=== PATIENT | female | born 1940 | race Caucasian/White ===

== ENCOUNTER → 2020-06-21 | Outpatient (CLI) | payer MEDICARE, OTHER ==
[~2020-06-21] MED LIST: ASPI325 PO; ASPI81CH PO; ATEN25; ATENOLOL; ATOR20; Adult Low Dose81 MG PO; Avapro300 MG PO; CELE100 PO; CETI5; CONEST.3; CONEST.625 PO; DULO60 PO; FLUT.05NI; FLUT44OIA IH; HYDCHL12.5 PO; HYDCHL25 PO; IRBE75 PO; LEVSOD100 PO; LISI5; METO100ER PO; METO50ER PO; NAPR500 PO; OMEP40CA12 PO; OXYACE5T PO; OXYC1TAB11; Omeprazole20 M1 PO; SERT50 PO; SIMV10 PO; SUMA5NI PO; TOPI25 PO
== END | disposition home or self-care (01) ==
LOC: PLD 11:42 → LAB SHORT 11:42
DX: D22.71 Melanocytic nevi of right lower limb, including hip (principal)
CPT/HCPCS: 88305

== ENCOUNTER 2020-09-22 20:07 | Emergency (ER) | payer MEDICARE, OTHER ==
[~2020-09-22] VITALS: Ht 167.6 cm; Wt 77.1 kg
[~2020-09-22 20:07] MED LIST changes: -ATOR20
[2020-09-22] MEDS ORDERED: ATOR20 (20:49)
[2020-09-22 21:21] LABS: BASOPHILS ABSOLUTE AUTO 0.04 K/mm3 (0.00-0.23); BASOPHILS PERCENT AUTO 1 % (0-2); EOSINOPHILS ABSOLUTE AUTO 0.18 K/mm3 (0.00-0.68); EOSINOPHILS PERCENT AUTO 2 % (0-6); Hematocrit 42.1 % (33.0-51.0); Hemoglobin 13.7 g/dL (11.5-16.0); IMMATURE GRAN ABSOLUTE AUTO 0.02 K/mm3 (0.00-0.10); IMMATURE GRAN PERCENT AUTO 0 % (0-1); LYMPHOCYTES ABSOLUTE AUTO 3.99 K/mm3 (0.84-5.20); LYMPHOCYTES PERCENT AUTO 47 % (21-46); MONOCYTES ABSOLUTE AUTO 0.68 K/mm3 (0.16-1.47); MONOCYTES PERCENT AUTO 8 % (4-13); Mean Corpuscular HGB 30.7 pg (26.0-34.0); Mean Corpuscular HGB Conc 32.5 g/dL (31.5-36.5); Mean Corpuscular Volume 94 fL (80-100); Mean Platelet Volume 9.8 fL (9.1-12.4); NEUTROPHILS ABSOLUTE AUTO 3.64 K/mm3 (1.96-9.15); NEUTROPHILS PERCENT AUTO 43 % (41-73); Platelet Count 275 K/mm3 (150-400); RDW Coefficient Variation 13.6 % (11.7-14.2); RDW Standard Deviation 47.3 fL (35.1-46.3); Red Blood Cell Count 4.46 M/mm3 (3.80-5.20); White Blood Cell Count 8.55 K/mm3 (4.00-11.30)
[2020-09-22 21:44] LABS: Alanine Aminotransfer (ALT/SGP 18 U/L (12-78); Albumin, Blood 3.7 g/dL (3.4-5.0); Alk Phos 109 U/L (50-136); Anion Gap 6 mmol/L (6-16); Aspartate Aminotrans (AST/SGOT 18 U/L (12-37); Bilirubin, Total 0.3 mg/dL (0.1-1.0); Blood Urea Nitrogen 19 mg/dL (8-24); Bun/Creatinine Ratio 25.3 (12.0-20.0); CO2, Blood 29 mmol/L (21-32); Calcium, Blood 10.1 mg/dL (8.5-10.1); Chloride, Blood 106 mmol/L (98-108); Creatinine, Blood 0.75 mg/dL (0.40-1.00); Globulin, Blood 3.6 g/dL (2.2-4.0); Glomerular Filtration Rate >60 (60-); Glucose, Blood 88 mg/dL (70-99); Potassium, Blood 3.8 mmol/L (3.5-5.5); Sodium, Blood 141 mmol/L (136-145); Total Protein, Blood 7.3 g/dL (6.4-8.2); Troponin I <0.015 ng/mL (0.000-0.040)
== END 2020-09-22 23:11 | disposition home or self-care (01) ==
LOC: ER 20:07
PROVIDERS: Physician Assistant
DX: R07.9 Chest pain, unspecified (principal); I10 Essential (primary) hypertension; E78.5 Hyperlipidemia, unspecified; E03.9 Hypothyroidism, unspecified; I25.10 Atherosclerotic heart disease of native coronary artery without angina pectoris; Z88.8 Allergy status to other drugs, medicaments and biological substances; Z79.82 Long term (current) use of aspirin; Z79.899 Other long term (current) drug therapy
CPT/HCPCS: 36415; 71046; 80053; 83690; 84484; 85025; 93005; 93010; 99285-25

== ENCOUNTER 2021-07-26 21:47 | Emergency (ER) | payer MEDICARE, OTHER ==
[~2021-07-26] VITALS: Ht 167.6 cm; Wt 74.8 kg
[~2021-07-26 21:47] MED LIST changes: +ATOR20
[2021-07-26 22:13] LABS: Source, Urine Catheter
[2021-07-26 22:19] LABS: Appearance, Urine Hazy (Clear); Bilirubin, Urine Neg (Neg); Blood, Urine 5+ (Neg); Color, Urine Yellow (P-Yellow); Glucose Qualitative, Urine Neg (Neg); Ketones, Urine Neg (Neg); Leukocyte Esterase, Urine Neg (Neg); Nitrite, Urine Neg (Neg); Protein, Urine 2+ (Neg); Urobilinogen, Urine NORM (Normal)
[2021-07-26 22:32] LABS: BASOPHILS ABSOLUTE AUTO 0.03 K/mm3 (0.00-0.23); BASOPHILS PERCENT AUTO 0 % (0-2); EOSINOPHILS ABSOLUTE AUTO 0.07 K/mm3 (0.00-0.68); EOSINOPHILS PERCENT AUTO 1 % (0-6); Hematocrit 43.6 % (33.0-51.0); Hemoglobin 13.9 g/dL (11.5-16.0); IMMATURE GRAN ABSOLUTE AUTO 0.05 K/mm3 (0.00-0.10); IMMATURE GRAN PERCENT AUTO 1 % (0-1); LYMPHOCYTES PERCENT AUTO 37 % (21-46); MONOCYTES ABSOLUTE AUTO 0.77 K/mm3 (0.16-1.47); MONOCYTES PERCENT AUTO 8 % (4-13); Mean Corpuscular HGB 30.2 pg (26.0-34.0); Mean Corpuscular HGB Conc 31.9 g/dL (31.5-36.5); Mean Corpuscular Volume 95 fL (80-100); Mean Platelet Volume 9.5 fL (9.1-12.4); NEUTROPHILS ABSOLUTE AUTO 4.99 K/mm3 (1.96-9.15); NEUTROPHILS PERCENT AUTO 53 % (41-73); Platelet Count 316 K/mm3 (150-400); RDW Standard Deviation 48.8 fL (35.1-46.3); Red Blood Cell Count 4.61 M/mm3 (3.80-5.20); White Blood Cell Count 9.41 K/mm3 (4.00-11.30)
[2021-07-26 22:43] LABS: Alanine Aminotransfer (ALT/SGP 16 U/L (12-78); Albumin, Blood 3.5 g/dL (3.4-5.0); Albumin/Globulin Ratio 0.9 (0.8-1.8); Alk Phos 94 U/L (50-136); Anion Gap 7 mmol/L (6-16); Aspartate Aminotrans (AST/SGOT 25 U/L (12-37); Bilirubin, Total 0.4 mg/dL (0.1-1.0); Blood Urea Nitrogen 22 mg/dL (8-24); Bun/Creatinine Ratio 31.2 (12.0-20.0); CO2, Blood 28 mmol/L (21-32); Calcium, Blood 9.8 mg/dL (8.5-10.1); Chloride, Blood 107 mmol/L (98-108); Globulin, Blood 3.9 g/dL (2.2-4.0); Glomerular Filtration Rate >60 (60-); Glucose, Blood 113 mg/dL (70-99); Sodium, Blood 142 mmol/L (136-145); Total Protein, Blood 7.4 g/dL (6.4-8.2)
[2021-07-26 22:56] LABS: Bacteria Mod /hpf; Red Blood Cells, Urine 50-100 /hpf (0-2); Squamous Epithelial Cells Rare /hpf (Few); Yeast/Fungi Urine Few /hpf
[2021-07-26 22:57] LABS: Mucus Mod (0-Heavy)
[2021-07-26] MEDS ORDERED: CEPH500 PO (23:34)
[2021-07-26] MEDS ORDERED: PHENA200 PO (23:34)
== END 2021-07-27 00:32 | disposition home or self-care (01) ==
LOC: ER 21:47
PROVIDERS: Emergency Medicine
DX: N12 Tubulo-interstitial nephritis, not specified as acute or chronic (principal); I10 Essential (primary) hypertension; E03.9 Hypothyroidism, unspecified; Z86.73 Personal history of transient ischemic attack (TIA), and cerebral infarction without residual deficits; Z88.8 Allergy status to other drugs, medicaments and biological substances; Z79.82 Long term (current) use of aspirin; Z79.899 Other long term (current) drug therapy
CPT/HCPCS: 80053; 81001; 85025; 87086; 96365; 96375; 99284-25; A9270; J0696; J1170; J2405; J7030

== ENCOUNTER 2021-11-13 06:08 | Day surgery (SDC) | payer MEDICARE, OTHER ==
[~2021-11-13] VITALS: Ht 167.6 cm; Wt 77.6 kg
[~2021-11-13 06:08] MED LIST changes: +CEPH500 PO; +PHENA200 PO
[2021-11-13] MEDS ORDERED: IBUP800 PO (06:24)
[2021-11-13] MEDS ORDERED: HYDCHL25 PO (06:24)
[2021-11-13] MEDS ORDERED: LEVSOD100 PO (06:25)
[2021-11-13] MEDS ORDERED: IRBE150 PO (06:25)
[2021-11-13] MEDS ORDERED: MERIBIN5 MG PO (06:40)
--- NOTE | 2021-11-13 13:20 | NUR ---
MEDICATED FOR C/O 6/10 PAIN ON LOWER ABD, KPAD GIVEN, TOLERATING CLEAR LIQUIDS AND SOME REGULAR FOOD WELL, SMALL AMOUNT OF SEROUSANGUINOUS DRAINAGE NOTED ON PERIPAD, MOREIRA CATH IN PLACE DRAINING C/Y/U, VSS, CONT. TO MONITOR FOR ANY CHANGES.
--- NOTE | 2021-11-14 06:40 | NUR ---
PATIENT A&0X4 VSS, PT COOPERATIVE AND RECEPTIVE W/CARE PROVIDED. REPORTED SHORT BOUT OF HEARTBURN AND STATED IT WAS FROM RECENT TOMATO JUICE. ABDOMEN TENDER UPON PALPATION. REPORTED MODERATE TO SEVERE PAIN T/O SHIFT, MEDICATED PER EMAR AND LANRE MARIO. ABLE TO AMBULATE WITH ASSISTANCE. URINARY CATH DRAINING TRANSPARENT YELLOW URINE TO GRAVITY UNTIL DC'D @ 0530. PATIENT IS CURRENTLY REPORTING COMFORT WHILE RESTING IN LOW TRAN'S, CALL LIGHT WITHIN REACH, WILL CONTINUE TO MONITOR UNTIL REPORT GIVEN TO DAY SHIFT.
[2021-11-14] MEDS ORDERED: MASOPHEN500 M4 PO (07:38)
--- NOTE | 2021-11-14 07:38 | NUR ---
POD 1 S/P A&P REPAIR. PT VSS, PAIN MGD PER EMAR. PT HAD SMALL AMT VAGINAL BLEEDING, VILMA PAD CHANGED X2. PT MO REG PO, NO N/V, REP +FLATUS. MOREIRA D/C THIS AM, AWAITING VOIDING TRIAL.
[2021-11-14] MEDS ORDERED: DOCU100 PO (07:39)
[2021-11-14] MEDS ORDERED: ROXICODONE5 MG PO (07:39)
--- NOTE | 2021-11-14 10:24 | NUR ---
SHIFT ASSESSMENT SHIFT ASSESSMENT DOCUMENTATION BY JULIANNA STUDENT NURSE REVIEWED AND THIS RN AGREES WITH THAT DOCUMENTATION.
--- NOTE | 2021-11-14 11:42 | NUR ---
Pt. is in bed and awake. Pt. welcomes my visit. Pt. is pleasant and displays evidence of shruthi regarding her likely discharge today. Estabish rapport and identify mutual friends and family. Pt. verbalizes shruthi for her supportive family, and her commitment to care for her 89yr. old [id number]. Prayed with Pt. by holding her hand. Pt. displayed evidence of a delighted spirit. Pt. verbalized gratitude for the spiritual care visit.
--- NOTE | 2021-11-14 12:55 | NUR ---
WRITTEN AND VERBAL DISCHARGE INSTRUCTIONS PROVIDED, PT REPORTS UNDERSTANDING. QUESTIONS ANSWERED. WILL MONITOR UNTIL DISCHARGE.
--- NOTE | 2021-11-14 14:14 | NUR ---
DISCHARGE PT DISCHARGED HOME WITH FAMILY MEMBER AT 1345. PT ALERT AND ORIENTED AT TIME OF DISCHARGE. SHE WAS ABLE TO VOID WITH PVR OF 11ML AFTER VOID. PT ABLE TO AMBULATE. TOLERATING PO AND PAIN MANAGED BEFORE DISCHARGE. PT ESCORTED OUT IN A W/C.
== END 2021-11-14 13:20 | disposition home or self-care (01) ==
LOC: ORSCMMR 06:08 → ORD 07:30 → SURS 09:50 → ORSCMMR 11-14 13:20
PROVIDERS: Obstetrics & Gynecology
PROC: 0JQC0ZZ Repair Pelvic Region Subcutaneous Tissue and Fascia, Open Approach (ICD-10-PCS; principal; 2021-11-13 07:30)
PROC: 0UQF0ZZ Repair Cul-de-sac, Open Approach (ICD-10-PCS; principal; 2021-11-13 07:30)
DX: N81.10 Cystocele, unspecified (principal); N81.6 Rectocele; N81.5 Vaginal enterocele; I25.2 Old myocardial infarction; E03.9 Hypothyroidism, unspecified; G47.33 Obstructive sleep apnea (adult) (pediatric); K21.9 Gastro-esophageal reflux disease without esophagitis; I10 Essential (primary) hypertension; Z79.899 Other long term (current) drug therapy
CPT/HCPCS: 93005; 93010; A9270; C1771; J0171; J0690; J1100; J1885; J2405; J2704; J3010; J7120

== ENCOUNTER 2021-12-12 14:01 | Emergency (ER) | payer MEDICARE, OTHER ==
[~2021-12-12] VITALS: Ht 167.6 cm; Wt 76.2 kg
[~2021-12-12 14:01] MED LIST changes: +DOCU100 PO; +IBUP800 PO; +IRBE150 PO; +MASOPHEN500 M4 PO; +MERIBIN5 MG PO; +ROXICODONE5 MG PO
[2021-12-12 14:27] LABS: BASOPHILS ABSOLUTE AUTO 0.07 K/mm3 (0.00-0.23); BASOPHILS PERCENT AUTO 1 % (0-2); EOSINOPHILS ABSOLUTE AUTO 0.21 K/mm3 (0.00-0.68); EOSINOPHILS PERCENT AUTO 3 % (0-6); Hematocrit 45.4 % (33.0-51.0); Hemoglobin 14.8 g/dL (11.5-16.0); IMMATURE GRAN ABSOLUTE AUTO 0.03 K/mm3 (0.00-0.10); IMMATURE GRAN PERCENT AUTO 0 % (0-1); LYMPHOCYTES ABSOLUTE AUTO 3.38 K/mm3 (0.84-5.20); LYMPHOCYTES PERCENT AUTO 42 % (21-46); MONOCYTES ABSOLUTE AUTO 0.59 K/mm3 (0.16-1.47); MONOCYTES PERCENT AUTO 7 % (4-13); Mean Corpuscular HGB 30.3 pg (26.0-34.0); Mean Corpuscular HGB Conc 32.6 g/dL (31.5-36.5); Mean Corpuscular Volume 93 fL (80-100); Mean Platelet Volume 9.6 fL (9.1-12.4); NEUTROPHILS ABSOLUTE AUTO 3.77 K/mm3 (1.96-9.15); NEUTROPHILS PERCENT AUTO 47 % (41-73); Platelet Count 306 K/mm3 (150-400); RDW Coefficient Variation 14.1 % (11.7-14.2); RDW Standard Deviation 48.7 fL (35.1-46.3); Red Blood Cell Count 4.89 M/mm3 (3.80-5.20); White Blood Cell Count 8.05 K/mm3 (4.00-11.30)
[2021-12-12 14:48] LABS: Albumin/Globulin Ratio 1.1 (0.8-1.8); Bilirubin, Total 0.7 mg/dL (0.1-1.0); Calcium, Blood 10.2 mg/dL (8.5-10.1); Creatinine, Blood 0.65 mg/dL (0.40-1.00); Globulin, Blood 3.8 g/dL (2.2-4.0); Potassium, Blood 3.8 mmol/L (3.5-5.5); Total Protein, Blood 7.8 g/dL (6.4-8.2)
[2021-12-12] MEDS ORDERED: Aspir 8181 MG PO (17:01)
== END 2021-12-12 17:39 | disposition home or self-care (01) ==
LOC: ER 14:01
PROVIDERS: Emergency Medicine
DX: G45.9 Transient cerebral ischemic attack, unspecified (principal); R07.89 Other chest pain; I10 Essential (primary) hypertension; E03.9 Hypothyroidism, unspecified; Z79.899 Other long term (current) drug therapy; Z88.8 Allergy status to other drugs, medicaments and biological substances
CPT/HCPCS: 36415; 70450; 70496; 70498; 80053; 82947; 84484; 85025; 93005; 93010; A9270; Q9967

== ENCOUNTER → 2021-12-28 | Outpatient (CLI) | payer MEDICARE, OTHER ==
[~2021-12-28] MED LIST changes: +Aspir 8181 MG PO
[2021-12-28 16:32] LABS: Appearance, Urine Hazy (Clear); Bilirubin, Urine Neg (Neg); Blood, Urine 2+ (Neg); Color, Urine Amber (P-Yellow); Glucose Qualitative, Urine Neg (Neg); Ketones, Urine 1+ (Neg); Leukocyte Esterase, Urine 1+ (Neg); Nitrite, Urine Neg (Neg); Protein, Urine 2+ (Neg); Specific Gravity, Urine 1.025 (1.003-1.022); Urobilinogen, Urine 1+ (Normal)
[2021-12-28 16:52] LABS: Squamous Epithelial Cells Few /hpf (Few)
[2021-12-28 16:53] LABS: Bacteria Mod /hpf; Calcium Oxalate Crystals Mod /hpf; Mucus Light (0-Heavy)
[2021-12-28 16:54] LABS: Transitional Epithelial Cells Few /hpf (0-Rare)
== END | disposition home or self-care (01) ==
LOC: LAB SHORT 15:00
PROVIDERS: Obstetrics & Gynecology
DX: N39.41 Urge incontinence (principal)
CPT/HCPCS: 81001; 87086

== ENCOUNTER 2022-11-09 08:51 | Day surgery (SDC) | payer MEDICARE, OTHER ==
[2022-11-09] VITALS (16 sets, daily range): BP systolic 82–150; BP diastolic 50–82
[~2022-11-09] VITALS: Ht 167.6 cm; Wt 72.0 kg
[~2022-11-09 08:51] MED LIST changes: +ATOR20 PO; +CYMBALTA20 M1 PO; +MYRBETRIQ25 MG PO
--- NOTE | 2022-11-09 09:45 | NUR ---
Ambulatory in Day Surgery WITH STEADY GAIT. Surgical site prepped with 2% Chlorhexidine cloth wipe. History, Chart, Medications and Allergies reviewed before start of procedure. Lungs clear T/O to Auscultation. Patient confirms NPO status and agrees with scheduled surgery. Pre-Op teaching done. Pt verbalizes understanding.
--- NOTE | 2022-11-09 13:17 | NUR ---
PATIENT JUST CAME BACK FROM PACU TODAY AT 1300. POD 0 LEFT TKA PATIENT IS A&OX4. VS ARE WNL AND IS ON RA. SHE HAD A SPINAL DURING THE PROCEDURE AND CAN'T FEEL FROM HER HIPS DOWN AT THIS TIME. PEDAL PULSES ARE STRONG AND WARM TO TOUCH. HER LEFT KNEE HAS AN AQUACEL WITH THE POLAR PACK IN PLACE THAT IS C/D/I. SHE IS TOLERATING SMALL AMOUNTS OF PO INTAKE AT THIS TIME. SON IS AT BEDSIDE AND THIS NURSE GAVE HIM THE HARD PERSCRIPTIONS TO HAVE FILLED OUT. PATIENT IS LAYING IN BED WITH CALL LIGHT IN REACH.
--- NOTE | 2022-11-09 15:32 | NUR ---
SHIFT SUMMARY: POD 0 LEFT TKA PATIENT IS A&OX4. VS ARE WNL AND IS ON RA. PATIENT REPORTS A 4/10 PAIN ON THE LEFT KNEE AT THIS TIME AND HAS BEEN GIVEN PO TYLENOL AND OXY. SHE STATES "I'M STILL PRETTY NUMB BUT I CAN MOVE/WIGGLE MY FEET AND I CAN FEEL THEM SLOWLY WAKING UP!". LEFT KNEE HAS X2 AQUACEL THAT IS C/D/I. PEDAL PULSES ARE STRONG AND WARM TO THE TOUCH. SHE IS TOLERATING PO INTAKE. SHE IS LAYING IN BED WITH CALL LIGHT IN REACH.
[2022-11-09] MEDS ORDERED: ASPI81CH PO (15:41)
[2022-11-09] MEDS ORDERED: Percocet 5-3251 EACH PO (15:42)
--- NOTE | 2022-11-09 16:22 | NUR ---
PATIENT WAS BLADDER SCANNED AND IT WAS 997 ML. PATIENT THEN HAD THE SUDDEN URGE TO URINATE. WHEN PATIENT WAS A SBA WITH FWW AND GAIT BELT TO THE BATHROOM AND THEN BACK TO THE RECLINER. PATIENT URINATED ON MAJORITY OF THE BED, THE DRIBBLED WHEN WALKING TO THE BATHROOM, AND THEN VOIDED MORE IN THE TOLIET. PATIENT STATES "I FEEL A LOT MORE RELIEVED NOW!". URINE WAS LIGHT YELLOW COLORED. SHE IS IN THE RECLINER WITH LEGS ELEVATED AND POLAR PACK IN PLACE. CALL LIGHT WITHIN REACH.
[2022-11-10 02:25] VITALS: BP 128/59
[2022-11-10 04:49] LABS: BASOPHILS ABSOLUTE AUTO 0.02 K/mm3 (0.00-0.23); BASOPHILS PERCENT AUTO 0 % (0-2); EOSINOPHILS PERCENT AUTO 0 % (0-6); Hemoglobin 11.2 g/dL (11.5-16.0); IMMATURE GRAN ABSOLUTE AUTO 0.03 K/mm3 (0.00-0.10); IMMATURE GRAN PERCENT AUTO 0 % (0-1); LYMPHOCYTES ABSOLUTE AUTO 1.63 K/mm3 (0.84-5.20); LYMPHOCYTES PERCENT AUTO 19 % (21-46); MONOCYTES ABSOLUTE AUTO 0.53 K/mm3 (0.16-1.47); MONOCYTES PERCENT AUTO 6 % (4-13); Mean Corpuscular HGB 29.5 pg (26.0-34.0); Mean Corpuscular Volume 92 fL (80-100); Mean Platelet Volume 9.9 fL (9.1-12.4); NEUTROPHILS ABSOLUTE AUTO 6.49 K/mm3 (1.96-9.15); NEUTROPHILS PERCENT AUTO 75 % (41-73); Platelet Count 230 K/mm3 (150-400); RDW Coefficient Variation 14.2 % (11.7-14.2); RDW Standard Deviation 48.2 fL (35.1-46.3)
[2022-11-10 05:55] LABS: Bun/Creatinine Ratio 16.3 (12.0-20.0); Calcium, Blood 9.5 mg/dL (8.5-10.1); Creatinine, Blood 0.74 mg/dL (0.40-1.00); Potassium, Blood 4.3 mmol/L (3.5-5.5)
[2022-11-10 07:16] VITALS: BP 99/52
[2022-11-10 07:17] VITALS: BP 100/57
--- NOTE | 2022-11-10 10:51 | NUR ---
DISCHARGE SUMMARY POD 1 L TOTAL KNEE. A&OX4. O2 SAT >95% ON RA. VOIDING AND PASSING GAS. REMOVED IV ACCESS, NO OTHER DEVICES IN PLACE. PAIN MANAGED WITHIN ACCEPTABLE LIMITS. PT CLEARED EVAL FROM PT. AMBULATING WITH FRONT WHEELED WALKER. DRESSING DRY, CLEAN, INTACT WITH NO SIGNS OF DRAINAGE. ADDITIONAL AQUACEL DRESSING PROVIDED TO PT. EDUCATION GIVEN ON KEEPING KNEE ELEVATED. PT WILL FOLLOW UP WITH DR IN TWO WEEKS. ALL BELONGINGS WITH PT. LEFT VIA WHEELCHAIR TO PRIVATE AUTO.
--- NOTE | 2022-11-10 11:10 | NUR ---
RN UROLOGY DOCUMENTATION REVIEWED ALL DOCUMENTATION COMPLETE BY RN UROLOGY TODAY AND AGREE WITH HER ASSESSMENT OF THE PATIENT.
== END 2022-11-10 10:50 | disposition home or self-care (01) ==
LOC: ORSCMMR 08:51 → SURS 12:48 → ORSCMMR 11-10 10:50
PROVIDERS: Orthopaedic Surgery
PROC: 8E0Y0CZ Robotic Assisted Procedure of Lower Extremity, Open Approach (ICD-10-PCS; principal; 2022-11-09 11:00)
PROC: 0SRD0JA Replacement of Left Knee Joint with Synthetic Substitute, Uncemented, Open Approach (ICD-10-PCS; principal; 2022-11-09 11:00)
DX: M17.12 Unilateral primary osteoarthritis, left knee (principal); I10 Essential (primary) hypertension; E78.5 Hyperlipidemia, unspecified; Z86.73 Personal history of transient ischemic attack (TIA), and cerebral infarction without residual deficits; Z79.899 Other long term (current) drug therapy
CPT/HCPCS: 27447; 20985; S2900; 36415; 73560-LT; 80048; 85025; 97110; 97116; 97162; 97530; A9270; C1776; J0171; J0690; J0735; J1885; J2704; J2795; J3010; J7120

== ENCOUNTER → 2023-02-28 | Outpatient (CLI) | payer MEDICARE, OTHER ==
[~2023-02-28] MED LIST changes: +Percocet 5-3251 EACH PO
[2023-03-02 17:07] LABS: ANTI-DSDNA ANTIBODIES <1 IU/mL (0-9)
== END ==
LOC: LAB SHORT 12:32 → LAB 12:32
PROVIDERS: Family Medicine
DX: M13.0 Polyarthritis, unspecified (principal)
CPT/HCPCS: 36415; 86038; 86200; 86225; 86430

== ENCOUNTER → 2023-03-05 | Outpatient (CLI) | payer MEDICARE, OTHER ==
[2023-03-05 14:51] LABS: Bun/Creatinine Ratio 22.9 (12.0-20.0); Calcium, Blood 9.7 mg/dL (8.5-10.1); Creatinine, Blood 0.7 mg/dL (0.40-1.00); Potassium, Blood 3.4 mmol/L (3.5-5.5); Thyroid Stimulating Hormone 1.3 uIU/mL (0.360-4.800)
== END | disposition home or self-care (01) ==
LOC: LAB SHORT 11:15 → LAB 11:15
PROVIDERS: Family Medicine
DX: M13.0 Polyarthritis, unspecified (principal); E03.8 Other specified hypothyroidism; I10 Essential (primary) hypertension
CPT/HCPCS: 80048; 84443

== ENCOUNTER 2023-05-11 11:25 | Emergency (ER) | payer MEDICARE, OTHER ==
[~2023-05-11] VITALS: Ht 167.6 cm; Wt 74.8 kg
[~2023-05-11 11:25] MED LIST changes: +CELECOXIB100 MG PO
[2023-05-11 12:06] LABS: BASOPHILS ABSOLUTE AUTO 0.04 K/mm3 (0.00-0.23); BASOPHILS PERCENT AUTO 1 % (0-2); EOSINOPHILS PERCENT AUTO 2 % (0-6); Hematocrit 41.1 % (33.0-51.0); Hemoglobin 13.4 g/dL (11.5-16.0); IMMATURE GRAN ABSOLUTE AUTO 0.01 K/mm3 (0.00-0.10); IMMATURE GRAN PERCENT AUTO 0 % (0-1); LYMPHOCYTES ABSOLUTE AUTO 2.71 K/mm3 (0.84-5.20); LYMPHOCYTES PERCENT AUTO 43 % (21-46); MONOCYTES ABSOLUTE AUTO 0.41 K/mm3 (0.16-1.47); MONOCYTES PERCENT AUTO 7 % (4-13); Mean Corpuscular HGB 30.2 pg (26.0-34.0); Mean Corpuscular HGB Conc 32.6 g/dL (31.5-36.5); Mean Corpuscular Volume 93 fL (80-100); Mean Platelet Volume 9.4 fL (9.1-12.4); NEUTROPHILS ABSOLUTE AUTO 3.06 K/mm3 (1.96-9.15); NEUTROPHILS PERCENT AUTO 48 % (41-73); Platelet Count 284 K/mm3 (150-400); RDW Coefficient Variation 14.7 % (11.7-14.2); RDW Standard Deviation 50.7 fL (35.1-46.3); Red Blood Cell Count 4.44 M/mm3 (3.80-5.20); White Blood Cell Count 6.33 K/mm3 (4.00-11.30)
[2023-05-11 12:27] LABS: Albumin/Globulin Ratio 1.1 (0.8-1.8); Bilirubin, Total 0.6 mg/dL (0.1-1.0); Bun/Creatinine Ratio 11.7 (12.0-20.0); Calcium, Blood 9.6 mg/dL (8.5-10.1); Creatinine, Blood 0.68 mg/dL (0.40-1.00); Globulin, Blood 3.8 g/dL (2.2-4.0); Potassium, Blood 3.5 mmol/L (3.5-5.5); Total Protein, Blood 7.8 g/dL (6.4-8.2)
[2023-05-11 12:35] LABS: Influenza A, PCR NEGATIVE (NEGATIVE); Influenza B, PCR NEGATIVE (NEGATIVE); Resp Syncytial Virus, PCR NEGATIVE (NEGATIVE); SARS-Cov-2 (COVID-19) PCR, MMC NEGATIVE (NEGATIVE)
[2023-05-11 14:30] VITALS: BP 156/121
== END 2023-05-11 15:14 | disposition home or self-care (01) ==
LOC: ER 11:25
PROVIDERS: Emergency Medicine; Student in an Organized Health Care Education/Training Program
DX: R55 Syncope and collapse (principal); E86.0 Dehydration; B34.9 Viral infection, unspecified; Z20.822 Contact with and (suspected) exposure to COVID-19; I10 Essential (primary) hypertension; E03.9 Hypothyroidism, unspecified; Z88.8 Allergy status to other drugs, medicaments and biological substances; Z79.82 Long term (current) use of aspirin
CPT/HCPCS: 0241U; 71045; 80053; 83690; 84484; 85025; 93005; 93010; 96360; 99284-25; J7030

== ENCOUNTER 2023-05-14 08:59 | Day surgery (SDC) | payer MEDICARE, OTHER ==
[~2023-05-14] VITALS: Ht 167 cm; Wt 71.9 kg
[2023-05-14] VITALS (17 sets, daily range): BP systolic 103–151; BP diastolic 55–86
--- NOTE | 2023-05-14 09:54 | NUR ---
Ambulatory in Day Surgery w/sba. History, Chart, Medications and Allergies reviewed before start of procedure. Patient confirms NPO status and agrees with scheduled surgery. Surgical site prepped with 2% Chlorhexidine cloth wipe. Patient reports completing Chlorhexadine shower X2 prior to admission to hospital. Pre-Op teaching done. Pt verbalizes understanding.
--- NOTE | 2023-05-14 19:21 | NUR ---
SHIFT SUMMARY PT HAS UNFORTUNATLY BEEN STRUGGLING w/ NAUSEA & DRY HEAVES AT X's THIS AFTERNOON. HAS BEEN ABLE TO TAKE SIPS OF WATER & CRACKER's w/ PILLS. PAIN HAS SPIKED & DID REQUIRE IV BREAKTHRU.
[2023-05-15 00:13] VITALS: BP 135/62
[2023-05-15 04:53] LABS: BASOPHILS ABSOLUTE AUTO 0.02 K/mm3 (0.00-0.23); BASOPHILS PERCENT AUTO 0 % (0-2); EOSINOPHILS ABSOLUTE AUTO 0.05 K/mm3 (0.00-0.68); EOSINOPHILS PERCENT AUTO 1 % (0-6); Hematocrit 35.1 % (33.0-51.0); Hemoglobin 11.5 g/dL (11.5-16.0); IMMATURE GRAN ABSOLUTE AUTO 0.03 K/mm3 (0.00-0.10); IMMATURE GRAN PERCENT AUTO 0 % (0-1); LYMPHOCYTES ABSOLUTE AUTO 2.52 K/mm3 (0.84-5.20); LYMPHOCYTES PERCENT AUTO 30 % (21-46); MONOCYTES ABSOLUTE AUTO 0.61 K/mm3 (0.16-1.47); MONOCYTES PERCENT AUTO 7 % (4-13); Mean Corpuscular HGB 30.4 pg (26.0-34.0); Mean Corpuscular HGB Conc 32.8 g/dL (31.5-36.5); Mean Corpuscular Volume 93 fL (80-100); Mean Platelet Volume 9.9 fL (9.1-12.4); NEUTROPHILS ABSOLUTE AUTO 5.21 K/mm3 (1.96-9.15); NEUTROPHILS PERCENT AUTO 62 % (41-73); Platelet Count 252 K/mm3 (150-400); RDW Coefficient Variation 14.6 % (11.7-14.2); RDW Standard Deviation 50.4 fL (35.1-46.3); Red Blood Cell Count 3.78 M/mm3 (3.80-5.20); White Blood Cell Count 8.44 K/mm3 (4.00-11.30)
[2023-05-15 05:54] LABS: Bun/Creatinine Ratio 19.7 (12.0-20.0); Calcium, Blood 9.1 mg/dL (8.5-10.1); Creatinine, Blood 0.71 mg/dL (0.40-1.00); Potassium, Blood 3.8 mmol/L (3.5-5.5)
--- NOTE | 2023-05-15 06:23 | NUR ---
SHIFT SUMMARY PT IS POD#1 FOR AN ELECTIVE RIGHT TOTAL KNEE ARTHROPLASTY PERFORMED ON 05/14/23. AT THE BEGINNING OF THE SHIFT, PT WAS EXTREMELY NAUSEOUS AND VOMITED APPROX 650 MLS OF PINK-TINGED VOMIT ON TWO SEPARATE OCCASIONS. UNABLE TO GIVE ANY ANTI-NAUSEA MEDS D/T TIME CONSTRAINTS ON MEDS (Q6H). PT REPORTED FEELING BETTER AFTER VOMITING. PAIN WELL CONTROLLLED PER EMAR, UTILIZING BOTH IV AND PO MEDICATIONS. PT ABLE TO VOID ON TWO SEPARATE OCCASIONS. PT USED THE WALKER WELL AND WAS A 1 PERSON ASSIST WITH A GAIT BELT TO THE BEDSIDE COMMODE BY STANDING AND PIVOTING. VSS THROUGHOUT SHIFT WITH NO OTHER ACUTE EVENTS OCCURRING. HELD NOC SHIFT DOSES OF METOPROLOL AND IRBESARTAN D/T LOW HR AND BP.
[2023-05-15 07:03] VITALS: BP 131/56
--- NOTE | 2023-05-15 11:55 | NUR ---
Pt. is awake in bed and welcomes my visit. Pts. daughter is present at bedside and is known to charisma carbide grinder from the local community. Pt. is pleasant. Facilitated a life review and shared stories and common people connections that allowed rapport to be established. Pt. displayed evidence of being engaged and aware. Prayed with Pt. and her daughter. Both verbalized gratitude for the spiritual care visit.
[2023-05-15 15:02] VITALS: BP 131/63
[2023-05-15 19:14] VITALS: BP 126/56
--- NOTE | 2023-05-15 20:03 | NUR ---
SHIFT SUMMARY PT RECIEVED IVF T/O DAY AFTERNOON. NO ACTIVE EMESIS OR DRY HEAVES BUT CONTINUES TO HAVE NAUSEA. ABLE TO DRINK FLUIDS & EAT BITES OF FOOD. REPORTS DIZZINESS HAS IMPROVED T/O SHIFT BUT IS STILL THERE WHEN AMBULATES. HAS GRADUATED FROM USING BSC TO BATHROOM. URINE CLEAR. BM TODAY. HOPEFUL TO GO HOME TOMORROW IF DIZZINESS RESOLVES.
[2023-05-15 23:40] VITALS: BP 147/57
[2023-05-16 03:36] VITALS: BP 152/70
--- NOTE | 2023-05-16 04:19 | NUR ---
SHIFT SUMMARY POD2 R TKA PT ABLE TO REST T/O NIGHT. VOIDING. WALKING TO THE BATHROOM, NO DIZZINESS. PT STATES NAUSEA IS BETTER THIS MORNING. PAIN MANAGED PER EMAR. DRESSING TO R KNEE C/D/I. POLAR PAC ON. PLAN FOR DISCHARGE TODAY. NO OTHER CONCERNS AT THIS TIME. CALL LIGHT WITHIN REACH
[2023-05-16 07:07] VITALS: BP 132/64
--- NOTE | 2023-05-16 10:59 | NUR ---
Pt. is awake in bed and welcomes my visit. Pt. is pleasant and rapport is quickly re-established. Facilitated a life update. Pt. displays evidence of being alert, aware, and engaged with her process of recovery. Pt. verbalized that she felt she was just waiting to see the doctor so she could be discharged. Prayed with Pt. Pt. verblized gratitude for the spiritual care visit.
[2023-05-16] MEDS ORDERED: Norco 5-325 Ta1 EACH PO (12:39)
--- NOTE | 2023-05-16 13:22 | NUR ---
DISCHARGE PT HAS CLEARED THERAPY. PAIN REASONABLY CONTROLLED. EATING, DRINKING, & VOIDING WELL. REPORTS DIZZINESS & NAUSEA IS MINIMAL; FEELS COMFORTABLE TO GO HOME. DR MAYBERRY IN TO SEE PT AT LUNCH. RAJESH, AKOSUA, & POLAR PACK SENT w/ PT. ESCORTED OUT VIA W/C.
== END 2023-05-16 13:21 | disposition home or self-care (01) ==
LOC: ORSCMMR 08:59 → ORD 10:00 → ORSCMMR 10:00 → SURS 13:45 → ORSCMMR 05-16 13:21
PROVIDERS: Orthopaedic Surgery
PROC: 0SRC0JA Replacement of Right Knee Joint with Synthetic Substitute, Uncemented, Open Approach (ICD-10-PCS; principal; 2023-05-14 10:00)
DX: M17.11 Unilateral primary osteoarthritis, right knee (principal); Z96.643 Presence of artificial hip joint, bilateral; I10 Essential (primary) hypertension; E78.5 Hyperlipidemia, unspecified; Z86.73 Personal history of transient ischemic attack (TIA), and cerebral infarction without residual deficits; Z79.899 Other long term (current) drug therapy
CPT/HCPCS: 36415; 73560-RT; 80048; 85025; 97110; 97116; 97161; 97530; A9270; C1713; C1776; J0171; J0690; J0735; J1170; J1885; J2250; J2371; J2405; J2704; J2765; J2795; J3010; J7120

== ENCOUNTER 2023-05-19 18:47 | Emergency (ER) | payer MEDICARE, OTHER ==
[~2023-05-19] VITALS: Ht 167.6 cm; Wt 73.9 kg
[~2023-05-19 18:47] MED LIST changes: +Norco 5-325 Ta1 EACH PO
[2023-05-19 19:51] LABS: BASOPHILS ABSOLUTE AUTO 0.04 K/mm3 (0.00-0.23); BASOPHILS PERCENT AUTO 0 % (0-2); EOSINOPHILS ABSOLUTE AUTO 0.25 K/mm3 (0.00-0.68); EOSINOPHILS PERCENT AUTO 3 % (0-6); Hematocrit 31.5 % (33.0-51.0); Hemoglobin 10.3 g/dL (11.5-16.0); IMMATURE GRAN ABSOLUTE AUTO 0.03 K/mm3 (0.00-0.10); IMMATURE GRAN PERCENT AUTO 0 % (0-1); LYMPHOCYTES ABSOLUTE AUTO 4.46 K/mm3 (0.84-5.20); LYMPHOCYTES PERCENT AUTO 46 % (21-46); MONOCYTES ABSOLUTE AUTO 0.82 K/mm3 (0.16-1.47); MONOCYTES PERCENT AUTO 9 % (4-13); Mean Corpuscular HGB 30.7 pg (26.0-34.0); Mean Corpuscular HGB Conc 32.7 g/dL (31.5-36.5); Mean Corpuscular Volume 94 fL (80-100); Mean Platelet Volume 10.1 fL (9.1-12.4); NEUTROPHILS ABSOLUTE AUTO 4.09 K/mm3 (1.96-9.15); NEUTROPHILS PERCENT AUTO 42 % (41-73); Platelet Count 328 K/mm3 (150-400); RDW Coefficient Variation 14.6 % (11.7-14.2); RDW Standard Deviation 50.4 fL (35.1-46.3); Red Blood Cell Count 3.35 M/mm3 (3.80-5.20); White Blood Cell Count 9.69 K/mm3 (4.00-11.30)
[2023-05-19 20:03] LABS: Albumin, Blood 3.4 g/dL (3.4-5.0); Bilirubin, Total 0.6 mg/dL (0.1-1.0); Bun/Creatinine Ratio 20.4 (12.0-20.0); Calcium, Blood 9.4 mg/dL (8.5-10.1); Creatinine, Blood 0.93 mg/dL (0.40-1.00); Globulin, Blood 3.4 g/dL (2.2-4.0); Potassium, Blood 3.4 mmol/L (3.5-5.5); Total Protein, Blood 6.8 g/dL (6.4-8.2)
[2023-05-19 21:32] LABS: Influenza A, PCR NEGATIVE (NEGATIVE); Influenza B, PCR NEGATIVE (NEGATIVE); Resp Syncytial Virus, PCR NEGATIVE (NEGATIVE); SARS-Cov-2 (COVID-19) PCR, MMC NEGATIVE (NEGATIVE)
[2023-05-19] MEDS ORDERED: BENZ100A PO (23:48)
[2023-05-20] VITALS: BP 112/63
== END 2023-05-20 00:13 | disposition home or self-care (01) ==
LOC: ER 18:47
PROVIDERS: Student in an Organized Health Care Education/Training Program
DX: R05.9 Cough, unspecified (principal); R06.02 Shortness of breath; E87.6 Hypokalemia; I10 Essential (primary) hypertension; E03.9 Hypothyroidism, unspecified; Z96.651 Presence of right artificial knee joint; Z88.8 Allergy status to other drugs, medicaments and biological substances; Z79.899 Other long term (current) drug therapy; Z79.82 Long term (current) use of aspirin
CPT/HCPCS: 0241U; 71045; 71260; 80053; 84484; 85025; 85379; 93005; 93010; 94640; 94664; 99285-25; A9270; Q9967

== ENCOUNTER 2024-03-10 19:55 | Emergency (ER) | payer MEDICARE, OTHER ==
[~2024-03-10] VITALS: Ht 167.6 cm; Wt 70.3 kg
[~2024-03-10 19:55] MED LIST changes: +BENZ100A PO
[2024-03-10 20:34] VITALS: BP 96/77
[2024-03-10] MEDS ORDERED: Acetaminophen 325 MG TABLET PO ONE (20:40)
[2024-03-10 21:24] LABS: BASOPHILS ABSOLUTE AUTO 0.03 K/mm3 (0.00-0.23); BASOPHILS PERCENT AUTO 0 % (0-2); EOSINOPHILS ABSOLUTE AUTO 0.01 K/mm3 (0.00-0.68); EOSINOPHILS PERCENT AUTO 0 % (0-6); Hemoglobin 13.6 g/dL (11.5-16.0); IMMATURE GRAN ABSOLUTE AUTO 0.03 K/mm3 (0.00-0.10); IMMATURE GRAN PERCENT AUTO 0 % (0-1); LYMPHOCYTES ABSOLUTE AUTO 1.37 K/mm3 (0.84-5.20); LYMPHOCYTES PERCENT AUTO 12 % (21-46); MONOCYTES ABSOLUTE AUTO 0.93 K/mm3 (0.16-1.47); MONOCYTES PERCENT AUTO 8 % (4-13); Mean Corpuscular HGB Conc 33.2 g/dL (31.5-36.5); Mean Corpuscular Volume 91 fL (80-100); Mean Platelet Volume 9.5 fL (9.1-12.4); NEUTROPHILS ABSOLUTE AUTO 9.32 K/mm3 (1.96-9.15); NEUTROPHILS PERCENT AUTO 80 % (41-73); Platelet Count 243 K/mm3 (150-400); RDW Coefficient Variation 14.2 % (11.7-14.2); Red Blood Cell Count 4.53 M/mm3 (3.80-5.20); White Blood Cell Count 11.69 K/mm3 (4.00-11.30)
[2024-03-10 21:41] LABS: Albumin, Blood 3.6 g/dL (3.4-5.0); Albumin/Globulin Ratio 0.8 (0.8-1.8); Bun/Creatinine Ratio 13.7 (12.0-20.0); Calcium, Blood 9.7 mg/dL (8.5-10.1); Creatinine, Blood 0.73 mg/dL (0.40-1.00); Globulin, Blood 4.4 g/dL (2.2-4.0); Potassium, Blood 3.4 mmol/L (3.5-5.5)
[2024-03-10 22:37] LABS: Influenza A, PCR NEGATIVE (NEGATIVE); Influenza B, PCR NEGATIVE (NEGATIVE); Resp Syncytial Virus, PCR NEGATIVE (NEGATIVE); SARS-Cov-2 (COVID-19) PCR, MMC NEGATIVE (NEGATIVE)
[2024-03-10] MEDS ORDERED: Ketorolac Tromethamine 30mg Vial IV ONE (23:10)
[2024-03-10] MEDS ORDERED: NS 1,000 ML IV SCH (23:10)
[2024-03-10 23:13] LABS: Source, Urine Straight Cath
[2024-03-10 23:40] LABS: Appearance, Urine Hazy (Clear); Bilirubin, Urine Neg (Neg); Blood, Urine 2+ (Neg); Color, Urine Yellow (P-Yellow); Glucose Qualitative, Urine Neg (Neg); Ketones, Urine 1+ (Neg); Leukocyte Esterase, Urine 2+ (Neg); Nitrite, Urine Pos (Neg); Protein, Urine 2+ (Neg); Urobilinogen, Urine NORM (Normal)
[2024-03-10 23:56] LABS: Amorphous Light (0-Heavy); Bacteria Many /hpf; Red Blood Cells, Urine 0-2 /hpf (0-2); Squamous Epithelial Cells Not Seen /hpf (Few); White Blood Cells, Urine 25-50 /hpf (0-5)
[2024-03-11] MEDS ORDERED: CefTRIAXone Sodium 1,000 MG in NS 50 ML IV ONE (00:15)
[2024-03-11] MEDS ORDERED: CEPH500 PO (00:20)
== END 2024-03-11 00:25 | disposition home or self-care (01) ==
LOC: ER 19:55
PROVIDERS: Emergency Medicine
DX: N39.0 Urinary tract infection, site not specified (principal); I10 Essential (primary) hypertension; E03.9 Hypothyroidism, unspecified; G43.909 Migraine, unspecified, not intractable, without status migrainosus; Z79.82 Long term (current) use of aspirin; Z79.899 Other long term (current) drug therapy; Z88.8 Allergy status to other drugs, medicaments and biological substances
CPT/HCPCS: 0241U; 80053; 81001; 85025; 87077; 87086; 87186; 96361; 96374; 96375; 99284-25; A9270; J0696; J1885; J7030; P9612

== ENCOUNTER → 2024-03-22 | Outpatient (CLI) | payer MEDICARE, OTHER | END | disposition home or self-care (01) | LOC: LAB SHORT 14:35 → LAB 14:35 | DX: R30.0 Dysuria (principal); R35.0 Frequency of micturition | CPT/HCPCS: 87077; 87086; 87186 ==

== ENCOUNTER → 2024-05-15 | Outpatient (CLI) | payer MEDICARE, OTHER | LOC: LAB SHORT 12:10 → LAB 12:10 | DX: R30.0 Dysuria (principal); R35.0 Frequency of micturition | CPT/HCPCS: 87077; 87086; 87186 ==

== ENCOUNTER 2025-05-24 17:09 | Emergency (ER) | payer MEDICARE, OTHER ==
[~2025-05-24] VITALS: Ht 167.6 cm; Wt 63.5 kg
[2025-05-24 17:37] LABS: BASOPHILS ABSOLUTE AUTO 0.01 K/mm3 (0.00-0.23); BASOPHILS PERCENT AUTO 0 % (0-2); EOSINOPHILS ABSOLUTE AUTO 0.00 K/mm3 (0.00-0.68); EOSINOPHILS PERCENT AUTO 0 % (0-6); Hematocrit 37.6 % (33.0-51.0); Hemoglobin 12.2 g/dL (11.5-16.0); IMMATURE GRAN ABSOLUTE AUTO 0.01 K/mm3 (0.00-0.10); IMMATURE GRAN PERCENT AUTO 0 % (0-1); LYMPHOCYTES ABSOLUTE AUTO 0.61 K/mm3 (0.84-5.20); LYMPHOCYTES PERCENT AUTO 20 % (21-46); MONOCYTES ABSOLUTE AUTO 0.41 K/mm3 (0.16-1.47); MONOCYTES PERCENT AUTO 14 % (4-13); Mean Corpuscular HGB Conc 32.4 g/dL (31.5-36.5); Mean Corpuscular Volume 93 fL (80-100); NEUTROPHILS ABSOLUTE AUTO 1.96 K/mm3 (1.96-9.15); NEUTROPHILS PERCENT AUTO 65 % (41-73); NRBC ABSOLUTE 0.00 K/mm3 (0.00-0.02); NRBC Auto 0.0 /100 WBC (0.0-0.2); Platelet Count 198 K/mm3 (150-400); RDW Coefficient Variation 14.9 % (11.7-14.2); RDW Standard Deviation 50.7 fL (35.1-46.3)
[2025-05-24 18:02] LABS: Alanine Aminotransfer (ALT/SGP 18.0 U/L (12-78); Albumin, Blood 3.6 g/dL (3.4-5.0); Albumin/Globulin Ratio 1.1 (0.8-1.8); Anion Gap 9.0 mmol/L (3-11); Aspartate Aminotrans (AST/SGOT 42.0 U/L (12-37); Bilirubin, Total 0.6 mg/dL (0.1-1.0); Blood Urea Nitrogen 9.0 mg/dL (8-24); CO2, Blood 25.0 mmol/L (21-32); Calcium, Blood 8.9 mg/dL (8.5-10.1); Chloride, Blood 103.0 mmol/L (98-108); Creatinine, Blood 0.68 mg/dL (0.40-1.00); Globulin, Blood 3.4 g/dL (2.2-4.0); Glucose, Blood 97.0 mg/dL (70-99); Potassium, Blood 3.4 mmol/L (3.5-5.5); Sodium, Blood 134.0 mmol/L (136-145); Total Protein, Blood 7.0 g/dL (6.4-8.2)
[2025-05-24 18:15] LABS: Influenza B, PCR NEGATIVE (NEGATIVE); Resp Syncytial Virus, PCR NEGATIVE (NEGATIVE); SARS-Cov-2 (COVID-19) PCR, MMC NEGATIVE (NEGATIVE)
[2025-05-24 20:07] LABS: Influenza A, PCR POSITIVE (NEGATIVE)
[2025-05-24 22:13] VITALS: BP 121/70
== END 2025-05-24 22:15 | disposition home or self-care (01) ==
LOC: ER 17:09
PROVIDERS: Physician Assistant
DX: J10.1 Influenza due to other identified influenza virus with other respiratory manifestations (principal); I10 Essential (primary) hypertension; E03.9 Hypothyroidism, unspecified; Z88.8 Allergy status to other drugs, medicaments and biological substances; Z79.890 Hormone replacement therapy; Z79.82 Long term (current) use of aspirin; Z79.899 Other long term (current) drug therapy
CPT/HCPCS: 71046; 80053; 85025; 87637; 93005; 93010; 99284-25